=== PATIENT | female | born 1960 | race Caucasian/White ===

== ENCOUNTER 2016-10-28 13:39 | Outpatient (CLI) | payer OTHER, SELFPAY ==
--- NOTE | 2016-10-28 21:40 | RAD ---
LEFT CLAVICLE FOUR VIEWS 10/28/16 There is a fracture through the medial end of the left clavicle. Displacement in the superior inferi or direction seems minimal. Cross-sectional imaging would be needed to see if there was much anterio r or posterior displacement. The distal clavicle appeared intact and the left AC joint was normal in width. IMPRESSION: Fracture of the medial end of the left clavicle. Preliminary reading created at 1411. Discussed case with Chelsey Washington at 1800 on 10/28/16. POS: HOME
== END 2016-10-28 13:40 | disposition home or self-care (01) ==
LOC: BURRAD 13:39
PROVIDERS: ATTEND Clinical Nurse Specialist Medical-Surgical
DX: R52 Pain, unspecified (principal); S42.012D Anterior displaced fracture of sternal end of left clavicle, subsequent encounter for fracture with routine healing